=== PATIENT | male | born 2000 | race Caucasian/White ===

== ENCOUNTER 2023-03-14 14:23 | Emergency (ER) | payer OTHER ==
[2023-03-14] MEDS ORDERED: Ibuprofen 200 MG TAB ONE (16:18)
== END 2023-03-14 16:42 | disposition home or self-care (01) ==
LOC: EDBD 14:23 → ERS 14:23
DX: S80.211A Abrasion, right knee, initial encounter (principal); V18.0XXA Pedal cycle driver injured in noncollision transport accident in nontraffic accident, initial encounter